=== PATIENT | female | born 1965 | race Caucasian/White ===

== ENCOUNTER 2020-04-18 06:33 | Day surgery (SDC) | payer BC ==
--- NOTE | 2020-04-11 11:25 | RAD REPORT ---
EXAM DESCRIPTION: Jewell Olivia (2 Views)04/11/2020 10:55 am CLINICAL HISTORY: Preop for foot surgery. Hypertension COMPARISON: 2008 FINDINGS: The lungs appear clear of acute infiltrate. The heart is normal size IMPRESSION: No acute abnormalities displayed
[2020-04-11 11:30] LABS: Absolute Lymphocytes (CBC) 3.4 K/uL (0.7-4.9); Basophils % 1.1 % (0-1.3); Lymphocytes % 38.6 % (15.3-44.8); MPV 8.7 fL (7.6-11.3); RBC Red Blood Cell Count 4.22 M/uL (3.86-4.86)
[2020-04-11 11:33] LABS: Protime INR 0.96
[2020-04-11 11:37] LABS: Urine Appearance CLOUDY; Urine Bilirubin NEGATIVE (NEG); Urine Blood NEGATIVE (NEG); Urine Color YELLOW; Urine Glucose NEGATIVE (NEG); Urine Protein NEGATIVE (NEG); Urine Specific Gravity 1.015 (1.005-1.030); Urine Urobilinogen 0.2 mg/dL (0.2-1.0)
[2020-04-11 12:18] LABS: Urine Microscopic Reflex ORDER UMIC
[2020-04-11 12:27] LABS: Urine Bacteria <20 /HPF (<20); Urine Culture Reflex Order REFLEXED; Urine Mucus 1+ /HPF (NONE SEEN); Urine RBC <5 /HPF (NONE SEEN)
--- NOTE | 2020-04-17 13:04 | PREOPHP ---
Date of Admission: 04/18/2020 History Of Present Illness: This patient presented to my office with a chief complaint of a painful second intermetatarsal space present on the right foot. The problem has been present for many months. The patient has undergone treatment with ice, anti-inflammatories, injection of steroid and Laser Pain Management all with incomplete success and patient requests surgical management. Medical History: Includes arthritis, asthma, hypertension, and restless legs syndrome. Past Surgical History: Includes shoulder repair. Social History: Patient denies IV drug use, smoking. Admits to occasional wine consumption. Current Medications: Include Micardis 20 mg, Requip 0.25 mg, Nexium 40 mg, Singulair 10 mg. Allergies: TO HYDROCODONE BUT NOT CODEINE. Family History: Unremarkable. Physical Examination: General: The patient is healthy, well developed, well nourished, well oriented x3. Vascular: Evaluation reveals dorsalis pedis and posterior tibial pulses to be 4/4 bilaterally. Capillary refill time is within normal limits. Temperature is within normal limits. There is no claudication complaint, varicosities or signs of DVT. Musculoskeletal: Evaluation reveals a cavus foot type. Subtalar joint shows increased varus and there is forefoot adductus bilaterally. Equinus is noted to be -10 degrees bilaterally. Her goniometer management, digits are noted to be in normal alignment. Muscle, knee, and ankle assessment is within normal limits. There is no soft tissue growth palpated bilaterally. Skin: Evaluation reveals no rash, ulcer, tumor or contracture of the skin. Neurologic: evaluation reveals reflexes to be 5/5 for the patella and Achilles. There is palpation at the level of the second intermetatarsal space on the right foot pain. There is pain with palpation at the level of the second interspace on the right foot between metatarsal heads 2 and 3. There is no swelling or pain on palpation of the metatarsal heads. Pain radiates into the third toe, right foot. Imaging: X-ray evaluation shows no deformity, tumor or instability in the foot and no changes at the area of the second intermetatarsal space area. Diagnosis: Neuroma second intermetatarsal space, right foot with pain. Plan: The patient has undergone conservative management as mentioned already. Requests surgical management. The patient understands risks, benefits, and alternatives of the above-mentioned procedure, which is excision of neuroma, second intermetatarsal space, right foot, including the risk of pain, swelling, numbness, stiffness, infection, nonhealing of skin or soft tissue, recurrence of the deformed nerve, risk of PE and DVT have been explained to the patient as well as signs and symptoms. The patient has also been made aware of the specific risks of too much ambulation on the foot after surgery and understands she will undergo 6- to 8-week recovery with limited ambulation. The patient also understands during this time that COVID-19 is of increased risk. The patient understands the need to follow CDC guidelines for prevention of COVID, which would increase her risk of complications to healing, including increased risk of blood clots. The patient requests surgical management due to lack of response to conservative treatment. This patient is set to undergo surgery on April 18, 2020. Preop labs have been ordered. COVID test is negative. Medical H and P would be completed by Anesthesia. CHICA Voice ID: [id number] [facility]ITAL[facility]
--- OUTSIDE RECORDS SUMMARY | 2020-04-18 06:36 | XMS REPORT | Continuity of Care Document ---
:1965 Author Organization [employer] Care Team Providers Name Role Phone [employer] Unavailable Un available Problems Problem Status Onset Classification Date Comments Sourc e Date Reported Encounter for 11/10/19 11/12/2019 [facility] screening for 20 malignant neoplasm of colon Depressive disorder Active Problem 11/12/2019 [facility] (disorder) Gastroesophageal Active Problem 11/12/2019 [facility] reflux disease (disorder) Hypertensive Active Problem 11/12/2019 [facility] disorder, systemic arterial (disorder) Restless legs Active Problem 11/12/2019 [facility] (disorder) Seasonal allergy Active Problem 11/12/2019 [facility] (disorder) Medications Medication Details Route Status Patient Ordering Order Source Instructions [facility], In[facility] Soln-IV, IV, 020 Once, first dose 11/10/19 8:17:00 CDT, stop date 11/10/19 8:17:00 CDT propofol 20 mg = 2 mL, Inactive [facility] Emulsion, IV, 020 Once, first dose 11/10/19 8:09:00 CDT, stop date 11/10/19 8:09:00 CDT propofol 20 mg = 2 mL, Inactive [facility] Emulsion, IV, 020 Once, first dose 11/10/19 8:06:00 CDT, stop date 11/10/19 8:06:00 CDT propofol 20 mg = 2 mL, Inactive [facility] Emulsion, IV, 020 Once, first dose 11/10/19 8:02:00 CDT, stop date 11/10/19 8:02:00 CDT propofol 20 mg = 2 mL, Inactive [facility] Emulsion, IV, 020 Once, first dose 11/10/19 7:59:00 CDT, stop date 11/10/19 7:59:00 CDT propofol 30 mg = 3 mL, Inactive [facility] Emulsion, IV, 020 Once, first dose 11/10/19 7:56:00 CDT, stop date 11/10/19 7:56:00 CDT LR 1,000 mL 1,000 mL, IV, No Longer [facility] 75 mL/hr, Active 020 start date 11/10/19 7:55:00 CDT, 2.19, m2 Saline Lock 10 mL, Soln, No Longer [facility] Flush IV Push, As Active 020 Indicated PRN for flush, first dose 11/10/19 7:55:00 CDT Ondansetron 4 mg = 2 mL, No Longer [facility] Injection, IV Active 020 Push, q15min PRN for nausea, order duration: 2 doses, first dose 11/10/19 7:55:00 CDT, stop date Limited # of times fentaNYL 50 mcg = 1 Inactive [facility] mL, 020 Injection, IV, Once, first dose 11/10/19 7:54:00 CDT, stop date 11/10/19 7:54:00 CDT lidocaine 40 mg = 2 mL, Inactive [facility] Injection, 020 IV, Once, first dose 11/10/19 7:52:00 CDT, stop date 11/10/19 7:52:00 CDT propofol 30 mg = 3 mL, Inactive [facility] Emulsion, IV, 020 Once, first dose 11/10/19 7:52:00 CDT, stop date 11/10/19 7:52:00 CDT midazolam 2 mg = 2 mL, Inactive [facility] Injection, 020 IV, Once, first dose 11/10/19 7:51:00 CDT, stop date 11/10/19 7:51:00 CDT fentaNYL 50 mcg = 1 Inactive [facility] mL, 020 Injection, IV, Once, first dose 11/10/19 7:51:00 CDT, stop date 11/10/19 7:51:00 CDT LR 1,000 mL 1,000 mL, IV, Inactive [facility] 30 mL/hr, 020 start date 11/10/19 6:50:00 CDT, 2.19, m2 Lidocaine 2% 0.2 mL, Inactive [facility] 0.2 mL IV Start Injection, 020 [[place]] Subcutaneous, Once PRN for other (see comment), first dose 11/10/19 6:50:00 CDT ropinirole 2 MG 2 mg = 1 Active [facility] Oral Tablet tabs, Oral, 020 Daily, RESTLESS LEG SYNDROME telmisartan 40 40 mg = 1 Active [facility] mg oral tablet tabs, Oral, 020 Daily, HTN buPROPion 150 150 mg = 1 Active [facility] mg/12 hours tabs, Oral, 020 (SR) oral BID, tablet, DEPRESSION extended release montelukast 10 10 mg = 1 Active [facility] mg oral tablet tabs, Oral, 020 qPM, SEASONAL ALLERGIES pantoprazole 40 40 mg = 1 Active [facility] mg oral delayed tabs, Oral, 020 release tablet Daily, GERD Allergies, Adverse Reactions, Alerts Substance Category Reaction Severity Reaction Status Date Comments S ource type Reported codeine Assertion Vomiting Drug Active [facility] allergy Immunizations No Data Provided for This Section Results No Data Provided for This Section Pathology Reports No Data Provided for This Section Diagnostic Reports No Data Provided for This Section Consultation Notes No Data Provided for This Section Discharge Summaries No Data Provided for This Section History and Physicals No Data Provided for This Section Vital Signs Vital Sign Value Date Comments Source Temperature Oral (F) 36.7 Rianna 11/10/2019 [facility] Respitory Rate 16 11/10/2019 [facility] Systolic (mm Hg) 142 11/10/2019 [facility] Diastolic (mm Hg) 98 11/10/2019 [facility] Systolic (mm Hg) 153 11/10/2019 [facility] Diastolic (mm Hg) 92 11/10/2019 [facility] Heart Rate 81 11/10/2019 [facility] Respitory Rate 14 11/10/2019 [facility] Systolic (mm Hg) 158 11/10/2019 [facility] Diastolic (mm Hg) 98 11/10/2019 [facility] Heart Rate 73 11/10/2019 [facility] Respitory Rate 14 11/10/2019 [facility] Heart Rate 69 11/10/2019 [facility] Temperature Oral (F) 36.6 Rianna 11/10/2019 [facility] Temperature Oral (F) 36.7 Rianna 11/10/2019 [facility] Peripheral Pulse Rate 79 11/10/2019 [facility] Height 175.2 cm 11/10/2019 [facility] Weight Measured 104.3 11/10/2019 [facility] Height 175.2 cm 11/06/2019 [facility] Weight Measured 104.3 11/06/2019 [facility] Encounters Location Location Encounter Encounter Reason Attending ADM [place] Stat Source Details Type Number For Provider Date Date Visit [facility] Outpatient [id number] Jose 11/09 11/09 Active Surgic al [facility] Outpatient [id number] Jose 11/09 11/09 [facility] Gene Surgical [facility] [place] Procedures Procedure Code Date Perfomer Comments Source COLONOSCOPY FLEXIBLE; WITH 11/10/19 auto-popu lated [facility] BIOPSY; SINGLE OR MULTIPLE 20 from [id number] (N/A)<sup>1</sup> documented surgical case ESOPHAGOGASTRODUODENOSCOPY 11/10/19 auto-popu lated [facility] W/BIOPSY [id number] 20 from (N/A)<sup>2</sup> documented surgical case Rotator cuff [id number] BOTH SHOULDERS [facility] repair<sup>3</sup> Assessment and Plan No Data Provided for This Section Plan of Care No Data Provided for This Section Social History Social History Date Source Social History TypeResponse 11/06/2019 [facility] Smoking Status Never (less than 100 in lifetime) entered on: 11/06/19 Family History No Data Provided for This Section Advance Directives No Data Provided for This Section Functional Status No Data Provided for This Section
[2020-04-18] MEDS ORDERED: Ringers Lactate 0 ML IV ONE (07:04)
[2020-04-18] MEDS ORDERED: BETAMET ACET/BETAMET NA PH 6 MG/ML VIAL IM ONE (07:13)
[2020-04-18] MEDS ORDERED: dexAMETHasone 4 MG/ML VIAL ONE ×2 (07:21→08:16)
[2020-04-18] MEDS ORDERED: BUPIVACAINE 0.5% PF 10 ML VIAL ONE (07:21)
[2020-04-18] MEDS ORDERED: LIDOCAINE 1% 20 ML MDV ONE (07:21)
[2020-04-18] MEDS ORDERED: LIDOCAINE 2% MPF 5 ML VIAL ONE (07:23)
[2020-04-18] MEDS ORDERED: propofoL 200 MG/20 ML VIAL IV ONE ×2 (07:23)
[2020-04-18] MEDS ORDERED: MIDAZOLAM HCL 2 MG/2 ML INJ ONE (07:23)
[2020-04-18] MEDS ORDERED: FENTANYL CITR 100 MCG/2 ML ONE (07:23)
[2020-04-18] MEDS ORDERED: CEFAZOLIN SODIUM 1 GM/VIAL ONE (07:45)
[2020-04-18] MEDS ORDERED: NS 0.9% VIAL 10 ML ONE (07:46)
[2020-04-18] MEDS ORDERED: KETOROLAC 30 MG/ML INJ ONE (08:15)
[2020-04-18] MEDS ORDERED: ONDANSETRON 4 MG/2 ML VIAL ONE (08:16)
--- NOTE | 2020-04-18 08:53 | DS ---
Date Of Surgery: 04/18/2020 Surgeon: Tobi Alonzo DPM. Preoperative Diagnosis: Neuroma, second intermetatarsal space, right foot. Postoperative Diagnosis: Neuroma, second intermetatarsal space, right foot. Procedure: Excision of neuroma, second intermetatarsal space, right foot. Discharge Instructions: The patient tolerated the procedure and anesthesia well. Patient may resume normal diet and ambulate in a postop shoe. Patient has been given a cold therapy unit with written postop instructions and emergency phone number. The patient will be seen in my office for postoperat olivia care in 1 week. CHICA Voice ID: [id number] Report ID: [id number]
--- NOTE | 2020-04-18 08:53 | OP ---
Date of Procedure: 04/18/2020 Surgeon: Tobi Alonzo DPM Preoperative Diagnosis: Neuroma, second intermetatarsal space, right foot. Postoperative Diagnosis: Neuroma, second intermetatarsal space, right foot. Procedure: Excision of neuroma, second intermetatarsal space, right foot. Anesthesia: Via local infiltration. Description Of Procedure: The patient was brought into the operating room, placed on the operating r oom table in supine position. Once adequate IV sedation was obtained, the patient was injected with a total of 10 cc of 0.5% Marcaine plain. The patient was prepped and draped in the usual sterile man ner and the right extremity was elevated to 60 degrees. An Esmarch bandage was applied to exsanguina te the blood supply. Pneumatic ankle tourniquet was elevated to 250 mmHg and the Esmarch was removed . An incision was made in the second intermetatarsal space starting just proximal to the metatarsal heads and extending onto the third toe, approximately 3.5 cm in length. The incision was deepened vi a sharp and blunt dissection. All neurologic superficial structures were avoided. All bleeders were clamped and bovied. The incision was deepened via blunt dissection down to the transverse intermeta tarsal ligament, which was transversely incised with a dissecting scissor. With plantar pressure, th e neuromatous mass was brought into view utilizing dissecting scissors. The branches to the medial t hird and lateral second toe were dissected free and removed. The nerve was then carefully dissected with dissecting scissors proximal to the metatarsal heads and excised. It was sent for pathology. A ny additional bleeders were bovied. The capsule tissue on the second and third toes was intact. Ten dons were intact. It should be noted that metatarsal heads were in extremely close proximity. The a leslie was flushed with copious amounts of sterile saline. Subcutaneous tissue was closed utilizing 3-0 Vicryl sutures. Skin was closed utilizing 4-0 Prolene horizontal mattress suture. The area was shira ssed with Adaptic, dry sterile gauze, dry sterile Gricel, Kerlix, cold therapy pad, and Ke bandaging. Pneumatic ankle tourniquet was deflated and capillary return was seen to be instantaneous to all di gits including the second and third toes. The patient was sent to Same-day Surgery in satisfactory c ondition. CHICA Voice ID: [id number] Report ID: [id number]
[2020-04-18] MEDS ORDERED: Ringers Lactate 1,000 ML IV ONE (08:55)
[2020-04-18] MEDS ORDERED: HYDROCODONE/APAP 10/325 TAB ONE (09:12)
[2020-04-18] MEDS ORDERED: CODEINE 30MG/APAP 300MG TAB ONE (09:21)
[2020-04-18 09:29] VITALS: BP 109/62; TEMP 97; O2SAT 96
== END 2020-04-18 09:50 | disposition home or self-care (01) ==
LOC: OR 06:33
PROVIDERS: ATTEND Podiatrist
PROC: 01BG0ZZ Excision of Tibial Nerve, Open Approach (ICD-10-PCS; principal; 2020-04-18 07:30)
DX: G57.81 Other specified mononeuropathies of right lower limb (principal); M19.90 Unspecified osteoarthritis, unspecified site; J45.909 Unspecified asthma, uncomplicated; I10 Essential (primary) hypertension; G25.81 Restless legs syndrome; Z20.828 Contact with and (suspected) exposure to other viral communicable diseases
CPT/HCPCS: 87088; 85025; 87086; 80048; 36415; 85610; 88304; 85730; 71046; 28080; U0002; J2704 ×2; J1100; J2250; J3010; J7120; J2405; J0690; 81003; 81015; J0702